=== PATIENT | male | born 1960 | race Caucasian/White ===

== ENCOUNTER 2017-05-28 14:53 | Emergency (ER) | payer MEDICARE, MEDICAID, SELFPAY ==
[2017-05-28 14:55] VITALS: BP 124/82; PULSE 66; RESP 20; TEMP 36.6; O2SAT 96; BMI 19.5
--- NOTE | 2017-05-28 15:08 | XR_ITS ---
XR chest 2V HISTORY: ITS.REASON: CHEST PAIN ORDERING PHYSICIAN: Sulaiman Siddiqui MD PATIENT AGE: 57 years COMPARISON: 12/17/2016 FINDINGS: Mild cardiomegaly without failure. Prior median sternotomy with mitral valve replacement. . Bipolar pacemaker is present. There is hyperinflation consistent with obstructive chronic bronchitis. No lobar consolidation or collapse is evident. No acute bony anomalies. IMPRESSION: Overall no change cardiomegaly with postsurgical changes and COPD
[2017-05-28 15:19] LABS: Basophils % 0.6 % (0.1-2.0); Eosinophils # 0.1 K/mm3 (0.0-0.4); Eosinophils % 1.5 % (0.1-12.0); Hematocrit 45.5 % (42.0-52.0); Hemoglobin 14.4 g/dL (14.1-18.0); Lymphocytes # 1.7 K/mm3 (0.7-4.5); Lymphocytes % 24.9 K/mm3 (10-50); Mean Corpuscular HGB Conc 31.6 g/dL (31.8-35.4); Mean Corpuscular Hemoglobin 29.7 pg (27.0-31.2); Mean Platelet Volume 7.4 fl (7.4-10.4); Monocytes # 0.7 K/mm3 (0.1-1.0); Monocytes % 9.5 % (1.7-9.3); Neutrophils # 4.4 K/mm3 (1.8-7.8); Neutrophils % 63.5 % (37.0-80.0); Platelet Count 311 K/mm3 (142-424); Red Blood Count 4.84 M/mm3 (4.60-6.20); Red Cell Distribution Width 14.1 % (11.5-17.5); White Blood Count 6.9 K/mm3 (4.8-10.8)
--- NOTE | 2017-05-28 15:31 | [facility].EDCP ---
ED Disposition Clinical Impression: Pleurisy, CAD (coronary artery disease), COPD (chronic obstructive pulmonary disease), Tobacco abuse, Anticoagulated on Coumadin Disposition: Home, Self-Care Condition on Discharge: Fair Additional Instructions: 1- stop smoking. 2- daily ASA. 3- increase coumadin to 5 mg daily. 4- INR recheck in 2-3 days as we discussed. 5- follow up with your retail seasonal specialist Dr corley in AM. 6- call your pcp in Am. Referrals: Heather Burger [Primary Care Provider] - - Critical Care Critical Care Time: No Attestation: On , the high probability of a clinically significant, sudden or life threatening deterioration of the following system(s) required my full and direct attention, intervention and personal management. The time I documented below is in addition to time spent performing reported procedures but includes the following listed in this critical care notation. Medical Decision Making - Medical Records Medical records reviewed: Yes: I reviewed the patient's medical records. - Bishop Inquiry Pt receiving controlled substance: No Bishop was queried for this patient: No Vital Signs: 05/28/17 14:55 05/28/17 18:54 Temperature 97.9 F Temperature Source Oral Pulse Rate [Right Brachial] 66 60 Respiratory Rate 20 20 Blood Pressure [Right Arm] 124/82 117/81 Blood Pressure Mean [Right Arm] 96 93 Blood Pressure Source [Right Arm] Automatic Cuff Automatic Cuff Blood Pressure Position [Right Arm] Sitting Supine 02 Sat by Pulse Oximetry 96 100 Oxygen Delivery Method Room Air Room Air - Lab Data Lab Results 05/28/17 15:00: WBC 6.9, RBC 4.84, Hgb 14.4, Hct 45.5, MCV 94.0, MCH 29.7, MCHC 31.6 L, RDW 14.1, Plt Count 311, MPV 7.4, Neut % (Auto) 63.5, Lymph % (Auto) 24.9, Bertie % (Auto) 9.5 H, Eos % (Auto) 1.5, Baso % (Auto) 0.6, Neut # (Auto) 4.4, Lymph # (Auto) 1.7, Bertie # (Auto) 0.7, Eos # (Auto) 0.1, Baso # (Auto) 0.0 05/28/17 15:00: Sodium 136, Potassium 4.0, Chloride 100, Carbon Dioxide 28, Anion Gap 12.0, BUN 8, Creatinine 0.99, Estimated Creat Clear 65, Estimated GFR 78, Est GFR ( Amer) 94, Glucose 95, Calcium 9.0, Total Bilirubin 0.2, AST 16, ALT 14, Alkaline Phosphatase 86, Total Creatine Kinase 84, CK-MB (CK-2) 1.0, CK-MB (CK-2) Rel Index 1.2, Troponin I < 0.02, Total Protein 8.3 H, Albumin 3.7, Globulin 4.6 H, Albumin/Globulin Ratio 0.8 L 05/28/17 15:00: D-Dimer 1830 H* 05/28/17 15:00: B-Natriuretic Peptide 1030 H 05/28/17 15:00: PT 18.4 H, INR 1.69 H, APTT 35.5 H 05/28/17 18:10: Troponin I < 0.02 Result diagrams: 05/28/17 15:00 05/28/17 15:00 Orders (Tests/Meds): ED MEDICATIONS Discontinued Medications Generic Name Dose Route Start Last Admin Trade Name Freq PRN Reason Stop Dose Admin Aspirin 243 mg 05/28/17 15:08 05/28/17 15:10 Aspirin 81mg Chewable Tablet PO 05/28/17 15:09 243 mg ONCE ONE Administration Iopamidol 75 ml 05/28/17 16:48 05/28/17 16:49 [id number]; 75ml Vial IV 05/28/17 16:49 75 ml ONCE ONE Administration Sodium Chloride 10 ml 05/28/17 16:48 05/28/17 16:49 Rad-Saline Flush 10ml Syringe IV 05/28/17 16:49 10 ml ONCE ONE Administration - Radiology Data #1 Image(s): Chest Image Reviewed: Yes I reviewed the patient's radiology image - ECG Data Tracing #1 Normal sinus rhythm 69/min premature ventricular complexes right bundle branch block T-wave inversions in V1 and V4 that is unchanged from prior EKG dated November 13, 2025. ECG initial impression date: 05/28/17 ECG initial impression time: 15:00 Medical Decision Narrative: The patient continued to have intermittent chest pain with deep inspiration, he ruled out for GA by 2 negative troponin, he underwent a CT study that was negative for PE pulmonary embolus, I checked his INR and it was therapeutic, he has just increase his Coumadin to 5 mg a day with a recheck in 2 weeks. Advised him to get his INr checked in 2-3 days and he verb
--- NOTE | 2017-05-28 15:35 | ED_ITS ---
ED Disposition Clinical Impression: Pleurisy, CAD (coronary artery disease), COPD (chronic obstructive pulmonary disease), Tobacco abuse, Anticoagulated on Coumadin Disposition: Home, Self-Care Condition on Discharge: Fair Additional Instructions: 1- stop smoking. 2- daily ASA. 3- increase coumadin to 5 mg daily. 4- INR recheck in 2-3 days as we discussed. 5- follow up with your time checker Dr corley in AM. 6- call your pcp in Am. Referrals: Heather Burger [Primary Care Provider] - - Critical Care Critical Care Time: No Attestation: On , the high probability of a clinically significant, sudden or life threatening deterioration of the following system(s) required my full and direct attention, intervention and personal management. The time I documented below is in addition to time spent performing reported procedures but includes the following listed in this critical care notation. Medical Decision Making - Medical Records Medical records reviewed: Yes: I reviewed the patient's medical records. - Bishop Inquiry Pt receiving controlled substance: No Bishop was queried for this patient: No Vital Signs: 05/28/17 14:55 05/28/17 18:54 Temperature 97.9 F Temperature Source Oral Pulse Rate [Right Brachial] 66 60 Respiratory Rate 20 20 Blood Pressure [Right Arm] 124/82 117/81 Blood Pressure Mean [Right Arm] 96 93 Blood Pressure Source [Right Arm] Automatic Cuff Automatic Cuff Blood Pressure Position [Right Arm] Sitting Supine 02 Sat by Pulse Oximetry 96 100 Oxygen Delivery Method Room Air Room Air - Lab Data Lab Results 05/28/17 15:00: WBC 6.9, RBC 4.84, Hgb 14.4, Hct 45.5, MCV 94.0, MCH 29.7, MCHC 31.6 L, RDW 14.1, Plt Count 311, MPV 7.4, Neut % (Auto) 63.5, Lymph % (Auto) 24.9, Bartow % (Auto) 9.5 H, Eos % (Auto) 1.5, Baso % (Auto) 0.6, Neut # (Auto) 4.4, Lymph # (Auto) 1.7, [place]ow # (Auto) 0.7, Eos # (Auto) 0.1, Baso # (Auto) 0.0 05/28/17 15:00: Sodium 136, Potassium 4.0, Chloride 100, Carbon Dioxide 28, Anion Gap 12.0, BUN 8, Creatinine 0.99, Estimated Creat Clear 65, Estimated GFR 78, Est GFR ( Amer) 94, Glucose 95, Calcium 9.0, Total Bilirubin 0.2, AST 16, ALT 14, Alkaline Phosphatase 86, Total Creatine Kinase 84, CK-MB (CK-2) 1.0, CK-MB (CK-2) Rel Index 1.2, Troponin I < 0.02, Total Protein 8.3 H, Albumin 3.7, Globulin 4.6 H, Albumin/Globulin Ratio 0.8 L 05/28/17 15:00: D-Dimer 1830 H* 05/28/17 15:00: B-Natriuretic Peptide 1030 H 05/28/17 15:00: PT 18.4 H, INR 1.69 H, APTT 35.5 H 05/28/17 18:10: Troponin I < 0.02 Result diagrams: 05/28/17 15:00 05/28/17 15:00 Orders (Tests/Meds): ED MEDICATIONS Discontinued Medications Generic Name Dose Route Start Last Admin Trade Name Freq PRN Reason Stop Dose Admin Aspirin 243 mg 05/28/17 15:08 05/28/17 15:10 Aspirin 81mg Chewable Tablet PO 05/28/17 15:09 243 mg ONCE ONE Administration Iopamidol 75 ml 05/28/17 16:48 05/28/17 16:49 [id number]; 75ml Vial IV 05/28/17 16:49 75 ml ONCE ONE Administration Sodium Chloride 10 ml 05/28/17 16:48 05/28/17 16:49 Rad-Saline Flush 10ml Syringe IV 05/28/17 16:49 10 ml ONCE ONE Administration - Radiology Data #1 Image(s): Chest Image Reviewed: Yes I reviewed the patient's radiology image - ECG Data Tracing #1 Nor
[2017-05-28 15:40] LABS: Alanine Aminotransferase 14 U/L (12-78); Albumin Level 3.7 gm/dL (3.4-5.0); Albumin/Globulin Ratio 0.8 (1.1-1.8); Alkaline Phosphatase 86 U/L (46-116); Aspartate Amino Transferase 16 U/L (15-37); Bilirubin,Total 0.2 mg/dL (0.2-1.0); Blood Urea Nitrogen 8 mg/dL (7-18); CKMB Relative Index 1.2 U/L (0-4.0); Carbon Dioxide 28 mmol/L (21.0-32.0); Chloride 100 mmol/L (98-107); Creatine Kinase 84 U/L (39-308); Creatinine Clearance Estimated 65 mL/min (0-300); Creatinine,Serum 0.99 mg/dL (0.70-1.30); Estimated Glomerular Filt Rate 78 ml/min (>60); GFR (African American) 94 ML/MIN (>60); Globulin 4.6 gm/dl (1.3-3.2); Glucose 95 mg/dL (74-106); Sodium 136 mmol/L (136-145); Total Protein,Serum 8.3 gm/dL (6.4-8.2); Troponin I < 0.02 ng/ml (0.00-0.06)
[2017-05-28 15:43] LABS: INR 1.69 (0.9-1.1); Prothrombin Time 18.4 seconds (9.4-11.8)
[2017-05-28 15:48] LABS: Activated Partial Thrombo Time 35.5 seconds (23.6-34.0)
[2017-05-28 16:04] LABS: D-Dimer 1830 (0-400)
--- NOTE | 2017-05-28 16:05 | PC.NURSE ---
LAB CALLED WITH CRITICALS D-DIMER [id number] DR KEENAN AWARE
--- NOTE | 2017-05-28 16:19 | CT_ITS ---
CT angio chest HISTORY: Chest pain on inhalation ORDERING PHYSICIAN: Sulaiman Siddiqui MD PATIENT AGE: 57 years TECHNIQUE: Axial images obtained following the administration of 75 mL of Isovue 370 . Sagittal, and coronal reformatted images are also generated and reviewed. COMPARISON: None FINDINGS: There is no evidence of pulmonary embolus. Pulmonary arteries are normal in caliber. The aorta is not well opacified however, the study is tailored for the pulmonary arteries. No aortic aneurysm evident. Marked enlargement of the left ventricle. Prior median sternotomy. A mitral valve prosthesis is present. There are coronary artery calcifications. No obvious pericardial effusion. Moderate centrilobular emphysematous changes are present. There are scattered pulmonary fibrotic changes prominent in the lung bases. Upper abdominal images show a 4.8 x 3.3 cm right adrenal mass measuring -7 Hounsfield units consistent with an adenoma. IMPRESSION: 1. No evidence of pulmonary was. 2. Cardiomegaly with marked enlargement of the left ventricle, prior mitral valve replacement
[2017-05-28 18:54] VITALS: BP 117/81; PULSE 60; RESP 20; O2SAT 100
[2017-05-28 18:55] LABS: Troponin I < 0.02 ng/ml (0.00-0.06)
[2017-05-28 19:27] VITALS: BP 123/84; PULSE 85; RESP 18; TEMP 36.7; O2SAT 94
== END 2017-05-28 19:28 | disposition home or self-care (01) ==
PROVIDERS: Emergency Provider Emergency Medicine; Family Provider Nurse Practitioner Family; PCP Nurse Practitioner Family
DX: R09.1 Pleurisy (principal); I25.10 Atherosclerotic heart disease of native coronary artery without angina pectoris; J44.9 Chronic obstructive pulmonary disease, unspecified; F17.210 Nicotine dependence, cigarettes, uncomplicated; Z79.01 Long term (current) use of anticoagulants; Z79.82 Long term (current) use of aspirin
CPT/HCPCS: 71046; 71275; 80053; 82550; 82553; 83880; 84484; 85025; 85378; 85610; 85730; 93005; 99211; 99283; Q9967

== ENCOUNTER → 2017-07-07 09:23 | Outpatient (CLI) | payer MEDICARE, MEDICAID, SELFPAY ==
--- NOTE | 2017-07-07 09:31 | XR_ITS ---
XR wrist RT min 3V HISTORY ITS.REASON: RT WRIST PAIN ORDERING PHYSICIAN: Heather Burger PATIENT AGE: 57 years COMPARISON: 08/19/2014 FINDINGS: No acute fracture or dislocation is evident. Osteoarthritic changes are once again noted involving the radioscaphoid joint and the lunate capitate joint. There is some sclerosis of the proximal aspect of the scaphoid as before. Calcification noted along the dorsal aspect of the wrist with old triquetral fracture. IMPRESSION: Osteoarthritic changes of the wrist as described above overall not significant change with suspected old triquetral fracture.
== END ==
PROVIDERS: PCP Nurse Practitioner Family; Visit Provider Nurse Practitioner Family
DX: M25.531 Pain in right wrist (principal)
CPT/HCPCS: 73110

== ENCOUNTER → 2017-09-14 09:45 | Outpatient (CLI) | payer MEDICARE, MEDICAID, SELFPAY ==
--- NOTE | 2017-09-14 09:49 | XR_ITS ---
XR wrist RT 2V HISTORY ITS.REASON: WRIST PAIN ORDERING PHYSICIAN: Heather Burger PATIENT AGE: 57 years Comparison: 07/07/2017 FINDINGS: There are osteoarthritic changes of the radiocarpal joint at the radioscaphoid region with osteosclerosis of the proximal aspect of the scaphoid and distal aspect of the radius with osteophyte formation and small subarticular cyst. Probably overall not significantly changed. There are also osteoarthritic changes of the mid carpal row at the lunate and capitate and lunate and trapezoid. There is an old triquetral avulsion fracture once again noted. No acute fracture or dislocation. IMPRESSION: Overall no change in the osteoarthritic changes of the wrist as described above with an old triquetral avulsion fracture suspected
== END ==
PROVIDERS: PCP Nurse Practitioner Family; Visit Provider Nurse Practitioner Family
DX: M25.531 Pain in right wrist (principal)
CPT/HCPCS: 73100

== ENCOUNTER → 2018-06-23 10:43 | Outpatient (CLI) | payer MEDICARE, MEDICAID, SELFPAY ==
--- NOTE | 2018-06-23 11:07 | XR_ITS ---
XR chest 2V HISTORY: ITS.REASON: BRONCHOPNEUMONIA cough and shortness of breath ORDERING PHYSICIAN: Heather Burger PATIENT AGE: 58 years COMPARISON: 04/20/2018 FINDINGS: There is mild cardiomegaly without failure. There has been prior median sternotomy and aortic valve replacement with multiple clips in the anterior mediastinum. Bipolar pacemaker is present from left subclavian approach. CHF has improved. No lobar consolidation or collapse. IMPRESSION: Cardiomegaly with postsurgical changes and interval improvement in CHF
[2018-06-23 11:35] LABS: Basophils # 0.1 K/mm3 (0-0.2); Basophils % 0.5 % (0.1-2.0); Eosinophils # 0.1 K/mm3 (0.0-0.4); Eosinophils % 0.8 % (0.1-12.0); Hematocrit 38.3 % (42.0-52.0); Hemoglobin 12.6 g/dL (14.1-18.0); Lymphocytes # 2.2 K/mm3 (0.7-4.5); Lymphocytes % 25.7 % (10-50); Mean Corpuscular Hemoglobin 30.3 pg (27.0-31.2); Mean Corpuscular Volume 91.9 fl (80-94); Mean Platelet Volume 6.9 fl (7.4-10.4); Monocytes # 0.9 K/mm3 (0.1-1.0); Monocytes % 10.3 % (1.7-9.3); Neutrophils # 5.3 K/mm3 (1.8-7.8); Neutrophils % 62.8 % (37.0-80.0); Platelet Count 688 K/mm3 (142-424); Red Blood Count 4.17 M/mm3 (4.60-6.20); Red Cell Distribution Width 14.9 % (11.5-17.5); White Blood Count 8.4 K/mm3 (4.8-10.8)
[2018-06-23 12:38] LABS: Alanine Aminotransferase 16 U/L (12-78); Albumin Level 3.3 gm/dL (3.4-5.0); Albumin/Globulin Ratio 0.8 (1.1-1.8); Alkaline Phosphatase 62 U/L (46-116); Anion Gap 14.3 mEq/L (5-15); Bilirubin,Total 0.3 mg/dL (0.2-1.0); Blood Urea Nitrogen 7 mg/dL (7-18); Carbon Dioxide 28 mmol/L (21.0-32.0); Chloride 102 mmol/L (98-107); Creatinine,Serum 0.96 mg/dL (0.70-1.30); Digoxin 0.97 ng/mL (0.90-2.00); Estimated Glomerular Filt Rate 80 ml/min (>60); GFR (African American) 97 ML/MIN (>60); Glucose 77 mg/dL (74-106); Sodium 141 mmol/L (136-145); Total Protein,Serum 7.3 gm/dL (6.4-8.2)
[2018-06-23 12:40] LABS: Aspartate Amino Transferase 20 U/L (15-37); Potassium 3.3 mmoL/L (3.5-5.1)
== END ==
PROVIDERS: PCP Nurse Practitioner Family; Visit Provider Nurse Practitioner Family
DX: J18.0 Bronchopneumonia, unspecified organism (principal); Z51.81 Encounter for therapeutic drug level monitoring; Z79.899 Other long term (current) drug therapy
CPT/HCPCS: 36415; 71046; 80053; 80162; 85025

== ENCOUNTER → 2020-06-20 11:25 | Outpatient (CLI) | payer MEDICARE, MEDICAID, SELFPAY ==
[2020-06-20 14:10] LABS: Cholesterol 115 mg/dl (140-200); Triglycerides 78 mg/dl (30-150); VLDL Cholesterol 16 mg/dL (0-40)
[2020-06-20 14:11] LABS: Chol/HDL Ratio 2.9 (1-3.5); HDL Cholesterol 40 mg/dl (40-60)
[2020-06-20 14:21] LABS: Direct LDL Cholesterol 65.58 mg/dL (100-129)
[2020-06-20 18:45] LABS: INR 1.06 (0.9-1.1); Prothrombin Time 12.4 seconds (10.1-12.5)
== END ==
PROVIDERS: Visit Provider Internal Medicine Cardiovascular Disease
DX: E78.5 Hyperlipidemia, unspecified (principal); Z51.81 Encounter for therapeutic drug level monitoring; Z79.01 Long term (current) use of anticoagulants; Z95.2 Presence of prosthetic heart valve
CPT/HCPCS: 36415; 80061; 85610

== ENCOUNTER → 2020-06-27 09:46 | Outpatient (CLI) | payer MEDICARE, MEDICAID, SELFPAY ==
[2020-06-27 15:34] LABS: INR 1.26 (0.9-1.1); Prothrombin Time 14.6 seconds (10.1-12.5)
== END ==
PROVIDERS: Visit Provider Internal Medicine Cardiovascular Disease
DX: Z51.81 Encounter for therapeutic drug level monitoring (principal); Z79.01 Long term (current) use of anticoagulants; Z95.2 Presence of prosthetic heart valve
CPT/HCPCS: 36415; 85610

== ENCOUNTER → 2020-07-31 11:19 | Outpatient (CLI) | payer MEDICARE, MEDICAID, SELFPAY ==
[2020-07-31 14:44] LABS: INR 1.26 (0.9-1.1); Prothrombin Time 14.6 seconds (10.1-12.5)
== END ==
PROVIDERS: Visit Provider Internal Medicine Cardiovascular Disease
DX: Z51.81 Encounter for therapeutic drug level monitoring (principal); Z79.01 Long term (current) use of anticoagulants; Z95.2 Presence of prosthetic heart valve
CPT/HCPCS: 36415; 85610

== ENCOUNTER → 2020-08-28 09:08 | Outpatient (CLI) | payer MEDICARE, MEDICAID, SELFPAY ==
[2020-08-28 14:27] LABS: Prothrombin Time 71.8 seconds (10.1-12.5)
[2020-08-28 14:38] LABS: INR 7.03 (0.9-1.1)
== END ==
PROVIDERS: Visit Provider Internal Medicine Cardiovascular Disease
DX: Z51.81 Encounter for therapeutic drug level monitoring (principal); Z79.01 Long term (current) use of anticoagulants; Z95.2 Presence of prosthetic heart valve
CPT/HCPCS: 36415; 85610

== ENCOUNTER → 2020-08-31 12:27 | Outpatient (CLI) | payer MEDICARE, MEDICAID, SELFPAY ==
[2020-08-31 12:55] LABS: Prothrombin Time 20.8 seconds (10.1-12.5)
[2020-08-31 12:57] LABS: INR 1.84 (0.9-1.1)
== END ==
PROVIDERS: Visit Provider Internal Medicine Cardiovascular Disease
DX: Z51.81 Encounter for therapeutic drug level monitoring (principal); Z79.01 Long term (current) use of anticoagulants; Z95.2 Presence of prosthetic heart valve
CPT/HCPCS: 36415; 85610

== ENCOUNTER → 2020-10-23 14:31 | Outpatient (CLI) | payer MEDICARE, MEDICAID, SELFPAY ==
[2020-10-23 14:56] LABS: Prothrombin Time 37.7 seconds (10.1-12.5)
[2020-10-23 14:59] LABS: INR 3.51 (0.9-1.1)
== END ==
PROVIDERS: Visit Provider Internal Medicine Cardiovascular Disease
DX: Z51.81 Encounter for therapeutic drug level monitoring (principal); Z79.01 Long term (current) use of anticoagulants; Z95.2 Presence of prosthetic heart valve
CPT/HCPCS: 36415; 85610

== ENCOUNTER → 2020-12-06 10:53 | Outpatient (CLI) | payer MEDICARE, MEDICAID, SELFPAY ==
[2020-12-06 13:48] LABS: INR 6.42 (0.9-1.1)
== END ==
PROVIDERS: Visit Provider Internal Medicine Cardiovascular Disease
DX: Z51.81 Encounter for therapeutic drug level monitoring (principal); Z79.01 Long term (current) use of anticoagulants; Z95.2 Presence of prosthetic heart valve
CPT/HCPCS: 36415; 85610

== ENCOUNTER → 2020-12-10 09:06 | Outpatient (CLI) | payer MEDICARE, MEDICAID, SELFPAY ==
[2020-12-10 14:31] LABS: Prothrombin Time 12.6 seconds (10.1-12.5)
[2020-12-10 15:19] LABS: INR 1.07 (0.9-1.1)
== END ==
PROVIDERS: Visit Provider Internal Medicine Cardiovascular Disease
DX: Z51.81 Encounter for therapeutic drug level monitoring (principal); Z79.01 Long term (current) use of anticoagulants; Z95.2 Presence of prosthetic heart valve
CPT/HCPCS: 36415; 85610

== ENCOUNTER → 2021-03-20 11:37 | Outpatient (CLI) | payer MEDICARE, MEDICAID, SELFPAY | PROVIDERS: Visit Provider Internal Medicine Cardiovascular Disease | DX: Z51.81 Encounter for therapeutic drug level monitoring (principal); Z79.01 Long term (current) use of anticoagulants; Z95.2 Presence of prosthetic heart valve | CPT/HCPCS: 36415; 85610 ==